=== PATIENT | female | born 1950 | race Caucasian/White ===

== ENCOUNTER 2017-02-22 11:05 | Inpatient (IN) | payer MEDICARE, OTHER ==
[~2017-02-22] VITALS: Ht 162.6 cm; Wt 84.3 kg
--- NOTE | ~2017-02-22 | EKG ---
PATIENT: PETTY MORENO UNIT #: [id number] Ventricular Rate: 89 BPM Atrial Rate: 89 BPM P-R Interval: 126 ms QRS Duration: 72 ms Q-T Interval: 354 ms QTC Calculation(Bezet): 430 ms P [place]: 49 degrees Calculated R [place]: 30 degrees Calculated T [place]: 32 degrees Diagnosis Line: Normal sinus rhythm Diagnosis Line: Minimal voltage criteria for LVH, may be normal Diagnosis Line: variant Diagnosis Line: Borderline ECG Diagnosis Line: When compared with ECG of 13-JUL-2016 06:21, Diagnosis Line: No significant change was found Diagnosis Line: Confirmed by LYNDA MIDDLETON MD ([id number]) on Diagnosis Line: 02/24/2017 7:11:29 AM INTERPRETING MICHELLE MENDEZ
--- NOTE | ~2017-02-22 | DS ---
Unit #: [id number] #: [id number] Patient: PETTY MORENO [id number] [address] [address] [id number] I MR#: [id number] NAME: PETTY MORENO. ROOM: 4 Age: 66 Sex: F Admission Date: 02/22/2017 : 1950 Discharge Date: 02/24/2017 Attending Physician: Dipak Brooks M.D. Primary Care Physician: [facility]. DISCHARGE SUMMARY PRIMARY DIAGNOSIS Multifocal pneumonia, community acquired, possible Gram-negative marisa. SECONDARY DIAGNOSES 1. Hypertension, uncontrolled. 2. Depression with insomnia. 3. Known mild parkinsonian tremor, previously evaluated by neurology prior to admission. 4. History of breast cancer. HOSPITAL COURSE The patient was admitted to the hospital and started on IV antibiotics with Zithromax and cefepime. She was afebrile throughout her hospitalization. Her white blood cell count was trending downward and patient clinically improved rapidly. She saw Dr. Zhao with pulmonology in consultation. Cultures are negative at the time of discharge. She will need pulmonary followup to make sure she has complete resolution of her imaging findings with pulmonology. Her hypotension was not well controlled and her blood pressure medications were titrated upward. Also she had been having some parkinsonian symptoms and we did consult neurology with Dr. Edouard to evaluate. Dr. Edouard uncontrolled in his history that the patient has actually previously been diagnosed with parkinsonian tremor and mild Parkinson. At this point, she is not requiring treatment with medication for this and she is advised to go back to see her regular neurologist that she originally saw who gave her original diagnosis. Due to her parkinsonian tremor and the fact that her Abilify is not working very well for her depression, I have switched her from Abilify to Remeron. This can be titrated up to an effective dose with her [facility]. DISCHARGE DISPOSITION To home. DISCHARGE STATUS Stable. DISCHARGE ACTIVITY Ad scottie . DISCHARGE DIET 2,000 mg sodium diabetic diet. DISCHARGE FOLLOWUP Unit #: [id number] #: [id number] Patient: PETTY MORENO 1. With Dr. Zhao in four to eight weeks. 2. Followup with [facility] in one to two weeks. 3. Followup with her regular neurologist in one to two months. DISCHARGE MEDICATIONS 1. Remeron 15 mg p.o. q.h.s. 2. Glucophage 500 mg p.o. t.i.d. 3. Coreg 6.25 mg p.o. b.i.d. 4. Hydrochlorothiazide 2 mg p.o. daily. 5. Hydralazine 100 mg p.o. t.i.d. 6. Cozaar 100 mg p.o. b.i.d. 7. Zithromax 500 mg p.o. daily for five days. 8. Omnicef 300 mg p.o. b.i.d. for eight days. Dictated by... Dipak Brooks M.D. MARI/kaykay TD: 02/25/2017 12:55 JOB #: [id number] DISCHARGE SUMMARY Page 1 of 1 X Dipak Brooks MD X DISCHARGE SUMMARY
--- NOTE | ~2017-02-22 | HP ---
Unit #: [id number] #: [id number] Patient: PETTY MORENO [id number] [address] [address] [id number] I MR#: [id number] NAME: PETTY MORENO. ROOM: 15138 Age: 66 Sex: F Admission Date: 02/22/2017 : 1950 Attending Physician: Ezio Padilla M.D. Primary Care Physician: [facility]. HISTORY AND PHYSICAL CHIEF COMPLAINT Shortness of breath. HISTORY OF PRESENT ILLNESS The patient is a 66-year-old female with a history of bilateral breast cancer, status post lumpectomy back in 2009 and 2012, brought to the emergency room from the PCP office complaining of shortness of breath. The patient stated that patient has been feeling sick for the last two weeks, associated with a productive cough and cold. The patient was found to be in respiratory distress at the PCP office with saturations down to 77% on room air. The patient was brought to the emergency room and had a chest x-ray that showed multifocal pneumonia. The patient denies any sick contacts. The patient denies any fevers, chills, nausea, or vomiting. The patient is being admitted for the above reasons. PAST MEDICAL HISTORY 1. Hypertension. 2. Breast cancer, status post lumpectomy and radiation treatment. 3. Depression. PAST SURGICAL HISTORY Lumpectomy. SOCIAL HISTORY The patient lives with her . She quit smoking 30 years ago. She denies alcohol. Her code status is Full Code per records. FAMILY HISTORY Notable for mother having end-stage renal disease. ALLERGIES Lisinopril. HOME MEDICATIONS 1. Mucinex. 2. Cozaar. 3. Norvasc. 4. Lamictal. 5. Abilify. 6. Deltasone. 7. Hydralazine. 8. Cefdinir. 9. Ventolin. 10. Symbicort. Unit #: [id number] #: [id number] Patient: PETTY MORENO 11. Glucophage. 12. Lopressor. REVIEW OF SYSTEMS Positive for cough, positive for shortness of breath, positive for weakness. Denies any nausea or vomiting, denies any chest pain. Other systems were reviewed and are negative. PHYSICAL EXAMINATION GENERAL: Patient is lying in bed not in acute distress. VITAL SIGNS: Temperature 98.8, pulse 89, respiratory rate 23, blood pressure 175/105, and saturation 99% on two liters. HEENT: Head atraumatic, normocephalic. Pupils equal, round, and reactive to light and accommodation. Dry mucous membranes. NECK: Supple. LUNGS: Positive for rhonchi and wheezing. HEART: Regular rate and rhythm. ABDOMEN: Soft. Positive bowel sounds. EXTREMITIES: Patient has shakiness of the left upper extremity that is chronic. NEUROLOGIC: Alert, awake, and oriented. No gross focal motor deficit. DIAGNOSTIC STUDIES LABORATORY: WBC 14.8, hemoglobin 12.4, hematocrit 13.3, and platelets 237,000. Sodium 136, potassium 3.6, chloride 103, bicarb 28, glucose 97, BUN 18, creatinine 0.9, AST 22, ALT 27, and alkaline phosphatase 71. Troponin less than 0.05. BNP 46. IMAGING: Chest x-ray shows multifocal pneumonia. CARDIOLOGY: EKG shows normal sinus rhythm at a rate of 89 beats per minute. ASSESSMENT 1. Multifocal pneumonia. 2. Chronic obstructive pulmonary disease. 3. Probable sepsis. PLAN Admit the patient to inpatient with telemetry. Continue with IV antibiotics with Maxipime for coverage of the pseudomonas and Zithromax. Check the lactic acid if not done in the ER. If it is elevated, initiate the sepsis protocol. Will have a Pulmonary consult with Dr. Zhao as seen in the past. Repeat the labs again in the morning. Check the chest x-ray. Further recommendations will follow. Dictated by Amanda Esparza TD: 02/22/2017 15:49 JOB #: [id number] Unit #: [id number] #: [id number] Patient: PETTY MORENO HISTORY AND PHYSICAL Page 1 of 1 X EZIO PADILLA MD X HISTORY AND PHYSICAL
--- NOTE | ~2017-02-22 | CT57 ---
[facility] A Service of [facility] & [facility] RADIOLOGY TEXT RESULTS PATIENT: PETTY MORENO LOCATION: [facility] 574-01 : [birth year] UNIT #: [id number] AGE: [address]: Dipak Brooks MD SEX: F ORDER DR: [id number] [facility] [address] [place], [place] [address] [id number] I MR#: [id number] Acc #: [id number] NAME: PETTY MORENO. : 1950 SEX: F STUDY DATE/TIME: 02/23/2017 UNIT: [facility] ROOM: 4 STUDY DESCRIPTION: CT Chest Wo Cont Attending Physician: Dipak Brooks M.D. Ordering Physician: Ruben Amezquita M.D. Primary Care Physician: [facility] MEDICAL IMAGING REPORT This report is preliminary unless electronic signature is present EXAM Chest CT on 02/23 at 02:29 INDICATIONS Shortness of air, cough for 2 weeks. History of pneumonia and hypertension as well as breast cancer. TECHNIQUE Axial images were obtained through the chest without contrast. Multiplanar reformats were obtained. Comparison made with 03/17/2016. The CT exam was performed with one or more of the following radiation dose reduction techniques: automatic exposure control, adjustment of mA and/or kV according to patient size, and iterative reconstruction. FINDINGS Right paratracheal low-density lesion is again seen measuring about 1.9 x 1.5 cm. It measured similarly on both exams, this is not significantly changed. This may reflect a low-density lymph node or some chronic fluid. No new adenopathy is seen. There is no pleural or pericardial effusion. There is left upper lobe infiltrate worrisome for pneumonia. Minimal peripheral right upper lobe infiltrate noted. There is more confluent right lower lobe infiltrates. Again, these findings are in keeping with pneumonia. Chronic scarring in the right middle lobe is present. However, the degree of opacity is increased which may reflect increasing scarring or atelectasis. Attention on followup imaging is recommended. No suspicious osseous lesions. Upper abdomen again shows atrophy and/or postsurgical change in the left hepatic lobe. Cystic changes involving the liver are stable. IMPRESSION STS. [facility] A Service of [facility] & [facility] RADIOLOGY TEXT RESULTS PATIENT: PETTY MORENO LOCATION: [facility] 574-01 : [birth year] UNIT #: [id number] AGE: [address]: Dipak Brooks MD SEX: F ORDER DR: 1. Pneumonia involving the left upper lobe and right lower lobe predominately but also to a mild degree in the right upper lobe. 2. Increasing linear density in the right middle lobe may reflect some progression of fibrosis or some potential associated atelectasis. Attention on a followup imaging is recommended. 3. Stable appearance of a low-density lymph node versus chronic fluid in the right paratracheal space. 4. Stable appearance of the liver to the extent that it is visible. Dictated by... Ignacio Lua Jr., M.D. THIS IS AN ELECTRONICALLY VERIFIED REPORT Ignacio Lua Jr., M.D. at 02/23/2017 9:40 PM PEDRO/teresa TD: 02/23/2017 10:01 JOB #: [id number] MEDICAL IMAGING REPORT Page 1 of 1 COPY
--- NOTE | ~2017-02-22 | CR72 ---
[facility] A Service of [facility] & [facility] RADIOLOGY TEXT RESULTS PATIENT: PETTY MORENO LOCATION: [facility] 574-01 : [birth year] UNIT #: [id number] AGE: [address]: Dipak Brooks MD SEX: F ORDER DR: [id number] [facility] [address] [place], [place] [address] [id number] I MR#: [id number] Acc #: [id number] NAME: PETTY MORENO. : 1950 SEX: F STUDY DATE/TIME: 02/22/2017 12:10 UNIT: [facility] ROOM: 4 STUDY DESCRIPTION: CR Chest Single View Portable Attending Physician: Angela Padilla M.D. Ordering Physician: Charles Mullins M.D. Primary Care Physician: [facility]. MEDICAL IMAGING REPORT This report is preliminary unless electronic signature is present EXAM Chest portable 02/22/2017 1210 hours. HISTORY 66-year-old woman with cough for 2 weeks. History of hypertension and diabetes. COMPARISON 07/12/2016 FINDINGS Single portable upright view demonstrates mild cardiomegaly and tortuous aorta. There is bandlike density in the right midlung and left midlung. There is some rounded airspace density along the left heart border measuring up to 2 cm in and medially posterior to the heart measuring up to 2.2 cm with patchy density at the right lung base. Multifocal infection is favored. Nodules or malignancy cannot be excluded. IMPRESSION There is horizontal bandlike atelectasis in the right midlung and left midlung. There are nodular airspace densities along the left heart border and in the posterior medial left infrahilar region measuring approximately 2 cm. There is patchy airspace density at the right lung base. Multifocal pneumonia is favored over malignancy. Given the history of breast carcinoma, however metastasis cannot be excluded. Suggest treatment for pneumonia with short-interval followup chest CT. If these fail areas fail to respond rapidly to antibiotic therapy then a followup chest CT to exclude metastatic disease would be recommended. STAT * RESULT [facility] A Service of [facility] RADIOLOGY TEXT RESULTS PATIENT: PETTY MORENO LOCATION: [facility] 574-01 : [birth year] UNIT #: [id number] AGE: [address]: Dipak Brooks MD SEX: F ORDER DR: Dictated by... Francia Bullard M.D. THIS IS AN ELECTRONICALLY VERIFIED REPORT Francia Bullard M.D. at 02/23/2017 8:53 AM PEPE/lois TD: 02/22/2017 12:28 JOB #: [id number] MEDICAL IMAGING REPORT Page 1 of 1 COPY
--- NOTE | ~2017-02-22 | CO ---
Unit #: [id number] #: [id number] Patient: PETTY MORENO [id number] [address] [address] [id number] I MR#: [id number] NAME: PETTY MORENO. ROOM: 4 Age: 66 Sex: F Admission Date: 02/22/2017 : 1950 Attending Physician: Dipak Brooks M.D. Primary Care Physician: [facility]. Consultation Date: 02/22/2017 CONSULTATION REPORT REFERRING PHYSICIAN Dr. Vargas 66-year-old with pneumonia last year, now with two weeks productive cough, feeling chills but no fevers, nausea, vomiting, diarrhea, headache, vision changes. Some anorexia. No hematuria, no hematochezia, no significant abdominal pain. Some tightness in the chest. Cough is productive of clear sputum. The patient was admitted from the office where she was found to have a saturation of 77% on room air. Therefore, she was brought to the emergency room. She was therefore admitted. PAST MEDICAL HISTORY Significant for: 1. Hypertension. 2. History of breast cancer, status post lumpectomy with radiation treatment. 3. History of depression. PAST SURGICAL HISTORY Significant for lumpectomy. SOCIAL HISTORY The patient lives with her . She quit smoking 30 years ago. She denies any alcohol. No occupational exposures or recreational substance use. FAMILY HISTORY End stage renal disease in her mother. ALLERGIES The patient is allergic to lisinopril. MEDICATIONS Home medications include: 1. Cozaar 100 mg twice daily. 2. Glucophage 500 mg twice daily. 3. Abilify 10 mg daily. 4. Hydralazine 50 mg p.o. three times daily. 5. Hydrochlorothiazide 12.5 mg daily. PHYSICAL EXAMINATION VITAL SIGNS: T-current 98.3, pulse 96, respiratory rate 20, blood pressure 178/105. CHEST: Decreased breath sounds bilaterally. Unit #: [id number] #: [id number] Patient: PETTY MORENO CARDIOVASCULAR EXAM: Regular rate, no gallop. ABDOMEN: Soft, nontender, nondistended. EXTREMITIES: No significant edema. DIAGNOSTIC STUDIES LABORATORY DATA: White count 14.5, hemoglobin 12.6, platelets 237, BUN and creatinine 18/0.9, potassium 3.6, albumin 3.7. Otherwise, basic metabolic and liver function tests are within normal limits. IMAGING: Chest x-ray shows scattered infiltrates bilateral lungs, lower lobes especially. The patient's saturations have remained above over the past since admission. Cardiac enzymes negative x2. ASSESSMENT AND PLAN 1. Multifocal community-acquired pneumonia: The patient is on cefepime and Zithromax. 2. Patient has a slight hypokalemia. Patient's (1) seems to be decreasing. I think this is just going to be a rather nasty community-acquired pneumonia. We are going to continue treatment with antibiotics and are going to try to add nebs to try to see if we can expectorate. Will follow along with you. Thank you very much for this consult and allowing us to participate in the care of this patient. Dictated by... Amanda Michele TD: 02/24/2017 07:48 JOB #: [id number] CONSULTATION REPORT Page 1 of 1 X Erasto Amezquita MD X CONSULTATION REPORT
--- NOTE | ~2017-02-22 | CO ---
Unit #: [id number] #: [id number] Patient: PETTY MORENO [id number] [facility] [address] [place], [place] [address] [id number] I MR#: [id number] NAME: PETTY MORENO. ROOM: 574 Age: 66 Sex: F Admission Date: 02/22/2017 : 1950 Attending Physician: Dipak Brooks M.D. Primary Care Physician: [facility]. Consultation Date: 02/24/2017 CONSULTATION REPORT REFERRING MD Dr. Dipak Brooks REASON FOR CONSULTATION Evaluation for possible Parkinson disease. PATIENT IDENTIFICATION This is a 66-year-old, right handed, white female who was evaluated in room 574 at [facility]. SOURCE OF INFORMATION The patient and evaluation done by admitting team. PROBLEM LIST 1. Hypertension. 2. Breast cancer, status post lumpectomy and radiation treatment. 3. Depression. 4. She has a history of some new, probably multifocal, community-acquired pneumonia. 5. Hypokalemia. HISTORY OF PRESENT ILLNESS This is a 66-year-old female with medical issues and she was admitted for shortness of air. She was evaluated and the patient reported that she has had tremors on the left side and some quivering of the mouth so she wanted neurological evaluation. When I saw the patient, she does have very long amplitude resting tremor which is about 5 Hz or slower but she got up quickly and there was no bradykinesia. There is no gait abnormality. She did tell me that seven years ago she saw a neurologist and he did full workup and told her that she doesn't have Parkinson disease. No falls or injuries. No focal weakness. As I mentioned before, she does have resting tremor but really she is not that bad. It has no interference with her activities of daily living. PAST MEDICAL HISTORY As discussed above. Unit #: [id number] #: [id number] Patient: PETTY MORENO PAST SURGICAL HISTORY As discussed above. ALLERGIES Lisinopril. HOME MEDICATIONS 1. Mucinex. 2. Cozaar. 3. Norvasc. 4. Lamictal. 5. Abilify. 6. Deltasone. 7. Hydralazine. 8. Cefdinir. 9. Ventolin. 10. Symbicort. 11. Glucophage. 12. Lopressor. FAMILY HISTORY End stage renal disease in her mother. SOCIAL HISTORY The patient is and lives with her . She quit smoking about 30 years ago, denies alcohol or drug use. REVIEW OF SYSTEMS Detailed review of systems was attempted. The patient basically had breathing problems and she is here for that. No sleep problems, fevers, chills, rigors, sweats. HEENT: No headaches, no double vision, no earache, runny nose, sore throat. Some lip quivering. CARDIOVASCULAR: No chest pain, clubbing, cyanosis, orthopnea or palpitations. PULMONARY: No shortness of air, cough or expectoration. GASTROINTESTINAL: No nausea, vomiting, diarrhea or constipation. GENITOURINARY: No genitourinary symptoms otherwise. EXTREMITIES: Problems with tremors. BACK: No back problems. PSYCHIATRIC: She does have depression. NEUROLOGICAL: She has tremors. HEMATOLOGIC/DERMATOLOGIC/ENDOCRINE: No other hematologic, dermatologic or endocrine problems. PHYSICAL EXAMINATION VITAL SIGNS: Temperature 99.1, pulse 113, respirations 17, blood pressure 163/117. O2 sats are 94% to 98%. Weight of 185 pounds, BMI was 31. NEUROLOGICAL EXAMINATION: The patient is awake, alert, oriented x3. She is a bit slow in responses but totally appropriate otherwise. CRANIAL NERVE EXAMINATION: Demonstrates full canseco of vision. Eye movements are conjugate. I did not see any ptosis, I did not see any nystagmus. Extraocular movements are intact. Sensation on the face and scalp are normal. Strength of muscles of facial expression normal. Hearing seemed to be intact bilaterally. Tongue was midline, uvula was midline. Palate elevations were normal. Head turning and shoulder shrugs are unremarkable. MOTOR EXAMINATION: Demonstrated normal bulk, tone. Strength was Unit #: [id number] #: [id number] Patient: JOSHPETTY P essentially 5-/5. Very mild resting tremor on the left side. SENSORY EXAMINATION: Intact for soft touch and pain sensation. No extinction was seen. ROMBERG: Negative. GAIT EXAMINATION: Otherwise benign. REFLEXES: 1/4. Toes are equivocal. DIAGNOSTIC STUDIES Labs and CT reviewed. IMPRESSION Left sided resting tremor, likely Parkinson disease, very early and very low amplitude and not very many problems. Her gait is normal. There is no bradykinesia. There are no gait abnormalities. My recommendation is to have her see a neurologist as an outpatient and consider medication because starting medication can cause problems and needs severe side effect evaluation done. Supportive care for right now. Discussed with Dr. Brooks. Discussed with patient. She is happy about it. Call me if any other questions, issues or concerns. Further treatment will be based on evaluation. These are not seizures and, again, followup is indicated. Dictated by... Marcelino Edouard M.D. HARRY/melissa TD: 02/25/2017 08:28 JOB #: [id number] CONSULTATION REPORT Page 1 of 1 X Marcelino Edouard MD X CONSULTATION REPORT
[~2017-02-22 11:05] MED LIST: ABILIFY10 MG PO; ALBUTEROL17 GM INH; AUGMENTIN875 M1 PO; CEFDINIR300 M1 PO; COZAAR100 MG PO; DELTASONE20 MG PO; HCTZ PO; HYDRALAZINE HCL50 MG PO; INDERAL XL80 MG PO; LAMICTAL25 MG PO; LOPRESSOR PO; METFORMIN PO; MUCINEX PO; NORVASC PO; SYMBICORT INH
[2017-02-22 12:32] LABS: BASOPHIL# 0.1 X10e3 (0-0.3); BASOPHIL% 0.6 % (0-2.5); EOSINOPHIL# 0.3 X10e3 (0-0.7); EOSINOPHIL% 1.7 % (0.0-7.0); HEMATOCRIT 38.3 % (35.0-45.0); HEMOGLOBIN 12.4 gm/dL (12.0-16.0); LYMPHOCYTE# 1.4 X10e3 (1.0-3.5); LYMPHOCYTE% 9.4 % (17.0-45.0); MEAN CORPUSCULAR HEMOGLOBIN 28.8 PG (28-34); MEAN CORPUSCULAR HGB CONC 32.3 g/dL (30-36); MEAN PLATELET VOLUME 7.8 FL (6.5-11.5); MONOCYTE# 1.1 X10e3 (0-1.0); MONOCYTE% 7.3 % (3.0-12.0); PLATELET COUNT 237 X10e3 (140-420); RED BLOOD COUNT 4.31 X10e (3.90-5.30); RED CELL DISTRIBUTION WIDTH 13.8 % (11.0-15.5); WHITE BLOOD COUNT 14.8 X10e3 (4.0-10.5)
[2017-02-22 12:38] LABS: DIFF IND NO
[2017-02-22 12:52] LABS: ALBUMIN SERUM 3.7 g/dL (3.5-5.0); BILIRUBIN, DIRECT 0.1 mg/dL (0.0-0.2); BILIRUBIN,INDIRECT 0.6 mg/dL (0.0-0.9); BILIRUBIN,TOTAL 0.7 mg/dL (0.2-2.0); CALCIUM SERUM 8.9 mg/dL (8.4-10.2); CREATININE SERUM 0.9 mg/dL (0.6-1.4); GLOM FILT RATE Estimated 67.1 mL/min (>60); POTASSIUM 3.6 mmol/L (3.5-5.1); PROTEIN TOTAL SERUM 7.3 g/dL (6.0-8.3)
[2017-02-22 13:01] LABS: POC - CKMB 6.8 ng/mL (0.0-7.9); POC - TROPONIN <0.05 ng/mL (<=0.05)
[2017-02-22] MEDS ORDERED: COZAAR PO (15:06)
[2017-02-22] MEDS ORDERED: PATIENT'S PHARMACY (15:06)
[2017-02-22] MEDS ORDERED: ABILIFY10 MG PO (15:06)
[2017-02-22] MEDS ORDERED: METFORMIN PO (15:06)
[2017-02-22] MEDS ORDERED: HYDRALAZINE HCL50 MG PO (15:07)
[2017-02-22] MEDS ORDERED: HYDROCHLOROTH12.5 M1 PO (15:07)
[2017-02-22 16:09] LABS: POC - CKMB 4.8 ng/mL (0.0-7.9); POC - TROPONIN <0.05 ng/mL (<=0.05)
[2017-02-23 05:49] LABS: HEMATOCRIT 34.8 % (35.0-45.0); HEMOGLOBIN 11.9 gm/dL (12.0-16.0); MEAN CELL VOLUME 88.8 FL (83-96); MEAN CORPUSCULAR HEMOGLOBIN 30.5 PG (28-34); MEAN CORPUSCULAR HGB CONC 34.3 g/dL (30-36); MEAN PLATELET VOLUME 7.9 FL (6.5-11.5); RED BLOOD COUNT 3.92 X10e (3.90-5.30); RED CELL DISTRIBUTION WIDTH 13.7 % (11.0-15.5); WHITE BLOOD COUNT 14.7 X10e3 (4.0-10.5)
[2017-02-23 06:01] LABS: BUN/CREATININE RATIO 21.25; CALCIUM SERUM 8.6 mg/dL (8.4-10.2); CREATININE SERUM 0.8 mg/dL (0.6-1.4); GLOM FILT RATE Estimated 77.4 mL/min (>60); POTASSIUM 4.2 mmol/L (3.5-5.1)
[2017-02-23 10:50] LABS: LEGIONELLA AG URINE NEG (NEG)
[2017-02-24 05:12] LABS: HEMATOCRIT 35.1 % (35.0-45.0); HEMOGLOBIN 11.6 gm/dL (12.0-16.0); MEAN CELL VOLUME 88.7 FL (83-96); MEAN CORPUSCULAR HEMOGLOBIN 29.4 PG (28-34); MEAN CORPUSCULAR HGB CONC 33.1 g/dL (30-36); MEAN PLATELET VOLUME 7.6 FL (6.5-11.5); RED BLOOD COUNT 3.96 X10e (3.90-5.30); RED CELL DISTRIBUTION WIDTH 13.7 % (11.0-15.5); WHITE BLOOD COUNT 13.9 X10e3 (4.0-10.5)
[2017-02-24 05:41] LABS: BUN/CREATININE RATIO 21.81; CALCIUM SERUM 8.8 mg/dL (8.4-10.2); CREATININE SERUM 1.1 mg/dL (0.6-1.4); GLOM FILT RATE Estimated 52.7 mL/min (>60); POTASSIUM 3.6 mmol/L (3.5-5.1)
[2017-02-24] MEDS ORDERED: ZITHROMAX500 MG PO (14:59)
[2017-02-24] MEDS ORDERED: OMNICEF300 MG PO (15:00)
[2017-02-24] MEDS ORDERED: REMERON PO (15:01)
[2017-02-24] MEDS ORDERED: COREG6.25 M1 PO (15:02)
[2017-02-24] MEDS ORDERED: SYMBICORT INH (16:55)
[2017-02-24] MEDS ORDERED: COMBIVENT U/D3 M2 INH (16:56)
== END 2017-02-24 16:56 | disposition home or self-care (01) | DRG 871 ==
LOC: CED 11:05 → CEDOF 15:00 → C5C 15:00 → CED 15:48 → CEDOF 15:48 → C5C 18:16 → CEDOF 18:16 → C5C 02-23 07:27
PROVIDERS: Emergency Medicine; Internal Medicine; Internal Medicine Pulmonary Disease
DX: A41.9 Sepsis, unspecified organism (principal); J15.6 Pneumonia due to other Gram-negative bacteria; J96.20 Acute and chronic respiratory failure, unspecified whether with hypoxia or hypercapnia; I10 Essential (primary) hypertension; F32.9 Major depressive disorder, single episode, unspecified; G47.00 Insomnia, unspecified; G20 Parkinson's disease; E87.6 Hypokalemia; Z79.84 Long term (current) use of oral hypoglycemic drugs; Z87.891 Personal history of nicotine dependence
CPT/HCPCS: 36415; 71010; 71250; 80048; 80076; 82308; 82553; 82947; 83036; 83605; 83880; 84484; 85025; 85027; 87070; 87205; 87449; 87899; 90732; 93005; 94640; 94760; 96374; 97161; 99285; G0009; G8978-GP; G8979-GP; G8980-GP; J0456; J0692; J0696; J1650; J1815; J2930